=== PATIENT | female | born 1990 | race Caucasian/White ===

== ENCOUNTER → 2016-07-02 | Outpatient (CLI) | payer MEDICAID, OTHER ==
[2016-07-02 17:53] LABS: ABSOLUTE EOSINOPHILS # (AUTO) 0.1 10^3/uL (0.0-0.6); ABSOLUTE LYMPHOCYTES (AUTO) 1.6 10^3/uL (0.5-4.7); ABSOLUTE MONOCYTES (AUTO) 0.5 10^3/uL (0.1-1.4); ABSOLUTE NEUT (AUTO) 6.1 10^3/uL (1.7-8.2); BASOPHILS % (AUTO) 0.2 % (0-2); EOSINOPHILS % (AUTO) 0.9 % (0-6); HEMATOCRIT 33.9 % (36.0-47.0); HEMOGLOBIN 11.8 g/dL (12.0-15.5); HGB HCT DIFFERENCE 1.5; LYMPHOCYTES % (AUTO) 19.1 % (13-45); MEAN CORPUSCULAR HEMOGLOBIN 31.1 pg (27.0-33.4); MEAN CORPUSCULAR HGB CONC 34.8 g/dL (32.0-36.0); MEAN CORPUSCULAR VOLUME 89 fl (80-97); RED BLOOD COUNT 3.79 10^6/uL (3.72-5.28); RED CELL DISTRIBUTION WIDTH 12.5 % (11.5-14.0); SEGMENTED NEUTROPHILS % (AUTO) 73.8 % (42-78); WHITE BLOOD COUNT 8.3 10^3/uL (4.0-10.5)
== END ==
LOC: OD 16:35
PROVIDERS: ATTEND Student in an Organized Health Care Education/Training Program
DX: O26.892 Other specified pregnancy related conditions, second trimester (principal); R00.2 Palpitations
CPT/HCPCS: 36415; 84439; 84443; 85025

== ENCOUNTER 2016-09-06 17:21 | Outpatient (CLI) | payer MEDICAID ==
[2016-09-06 18:12] LABS: APPEARANCE,URINE CLEAR; BILIRUBIN,URINE NEGATIVE (NEGATIVE); GLUCOSE, URINE NEGATIVE (NEGATIVE); KETONES,URINE NEGATIVE (NEGATIVE); LEUKOCYTE ESTERASE,URINE SMALL (NEGATIVE); NITRITE,URINE NEGATIVE (NEGATIVE); PROTEIN,URINE NEGATIVE (NEGATIVE); URINE SPECIFIC GRAVITY 1.002; UROBILINOGEN,URINE NEGATIVE mg/dL (<2.0)
[2016-09-06 18:28] LABS: URINE BARBITURATES SCREEN NEGATIVE; URINE METHADONE SCREEN NEGATIVE; URINE OPIATES LOW NEGATIVE; URINE PHENCYCLIDINE SCREEN NEGATIVE
== END 2016-09-06 19:21 | disposition home or self-care (01) ==
LOC: LC 17:21
PROVIDERS: ATTEND Obstetrics & Gynecology
PROC: 4A1HXCZ Monitoring of Products of Conception, Cardiac Rate, External Approach (ICD-10-PCS; principal; 2016-09-06)
DX: O36.8130 Decreased fetal movements, third trimester, not applicable or unspecified (principal); Z3A.31 31 weeks gestation of pregnancy
CPT/HCPCS: 80307; 81001

== ENCOUNTER 2016-10-16 08:25 | Outpatient (CLI) | payer MEDICAID ==
[2016-10-16 09:01] LABS: APPEARANCE,URINE CLOUDY; BILIRUBIN,URINE NEGATIVE (NEGATIVE); GLUCOSE, URINE NEGATIVE (NEGATIVE); KETONES,URINE NEGATIVE (NEGATIVE); LEUKOCYTE ESTERASE,URINE LARGE (NEGATIVE); NITRITE,URINE NEGATIVE (NEGATIVE); PROTEIN,URINE NEGATIVE (NEGATIVE); URINE SPECIFIC GRAVITY 1.004; UROBILINOGEN,URINE NEGATIVE mg/dL (<2.0)
[2016-10-16 09:24] LABS: URINE BARBITURATES SCREEN NEGATIVE; URINE METHADONE SCREEN NEGATIVE; URINE OPIATES LOW NEGATIVE; URINE PHENCYCLIDINE SCREEN NEGATIVE
[2016-10-16] MEDS ORDERED: HYDROXYZINE PAMOATE 50 MG CAPSULE ONE (10:17)
--- NOTE | 2016-10-16 10:39 | Non Stress Test Report ---
Non Stress Test Datetime Report Generated by CPN: 10/16/2016 10:39 DEMOGRAPHIC EGA NST: 37.2 INDICATION Indication for Study: Ordered by Provider MONITORING Monitor Explained: Monitor Explained; Test Explained; Patient Verbalized Understanding Time on Monitor: 10/16/2016 08:46 Time off Monitor: 10/16/2016 10:10 NST Duration: 84 NST INTERVENTIONS NST Interventions: None Physician Notified NST: H Garrison CNM BABY A: [id number] BABY A Movement : Present Contraction Frequency : irregular FHR Baseline : 135 Accelerations : 15X15 Decelerations : None Variability : Moderate 6-25bpm NST Review: Meets Criteria for Reactive NST NST Review and Verified By : Disha Jones RN NST Results: Reactive NST REPORT Report Trigger: Send Report
== END 2016-10-16 10:25 | disposition home or self-care (01) ==
LOC: LC 08:25
PROVIDERS: ATTEND Obstetrics & Gynecology
PROC: 4A1HXCZ Monitoring of Products of Conception, Cardiac Rate, External Approach (ICD-10-PCS; principal; 2016-10-16)
DX: O47.1 False labor at or after 37 completed weeks of gestation (principal); Z3A.37 37 weeks gestation of pregnancy
CPT/HCPCS: 59025; 81005; 80307; J3490

== ENCOUNTER 2016-10-19 01:09 | Outpatient (CLI) | payer MEDICAID ==
[2016-10-19 01:59] LABS: APPEARANCE,URINE CLEAR; BILIRUBIN,URINE NEGATIVE (NEGATIVE); GLUCOSE, URINE NEGATIVE (NEGATIVE); KETONES,URINE NEGATIVE (NEGATIVE); LEUKOCYTE ESTERASE,URINE NEGATIVE (NEGATIVE); NITRITE,URINE NEGATIVE (NEGATIVE); PROTEIN,URINE NEGATIVE (NEGATIVE); URINE SPECIFIC GRAVITY 1.002; UROBILINOGEN,URINE NEGATIVE mg/dL (<2.0)
[2016-10-19 02:13] LABS: AMNISURE (ROM) NEGATIVE (NEGATIVE)
[2016-10-19 03:02] LABS: URINE BARBITURATES SCREEN NEGATIVE; URINE METHADONE SCREEN NEGATIVE; URINE OPIATES LOW NEGATIVE; URINE PHENCYCLIDINE SCREEN NEGATIVE
--- NOTE | 2016-10-19 03:24 | Non Stress Test Report ---
Non Stress Test Datetime Report Generated by CPN: 10/19/2016 03:24 DEMOGRAPHIC EGA NST: 37.5 INDICATION Indication for Study: Ordered by Provider Indication for Study (NST) Other: Suspected ROM VITAL SIGNS Temperature - NST: 98.6 Pulse - NST: 96 RESP - NST: 16 NBPSYS NST: 105 NBPDIA NST: 56 URINE RESULTS Urine Protein, NST: Negative Urine Ketones - NST: Negative Urine Glucose - NST: Negative Urine Blood - NST: Negative MONITORING Monitor Explained: Monitor Explained; Test Explained; Patient Verbalized Understanding Time on Monitor: 10/19/2016 02:10 Time off Monitor: 10/19/2016 02:30 NST Duration: 20 NST INTERVENTIONS NST Interventions: PO Hydration; Reposition Patient Physician Notified NST: Olivier, MD BABY A: [id number] BABY A Movement : Present Contraction Frequency : 0 FHR Baseline : 135 Accelerations : 15X15 Decelerations : None Variability : Moderate 6-25bpm NST Review: Meets Criteria for Reactive NST NST Review and Verified By : Virgilio Mo RN NST Results: Reactive NST REPORT Report Trigger: Send Report
== END 2016-10-19 03:05 | disposition home or self-care (01) ==
LOC: LC 01:09
PROVIDERS: ATTEND Obstetrics & Gynecology
PROC: 4A1HXCZ Monitoring of Products of Conception, Cardiac Rate, External Approach (ICD-10-PCS; principal; 2016-10-19)
DX: Z36 Encounter for antenatal screening of mother (principal); Z3A.37 37 weeks gestation of pregnancy
CPT/HCPCS: 59025; 84112; 81005; 80307; Q0114

== ENCOUNTER 2016-10-29 06:34 | Inpatient (IN) | payer MEDICAID ==
[2016-10-29] MEDS ORDERED: RINGERS SOLUTION,LACTATED 1,000 ML IV PRN (07:08)
[2016-10-29 07:58] LABS: ABSOLUTE EOSINOPHILS # (AUTO) 0.1 10^3/uL (0.0-0.6); ABSOLUTE LYMPHOCYTES (AUTO) 1.5 10^3/uL (0.5-4.7); ABSOLUTE MONOCYTES (AUTO) 0.7 10^3/uL (0.1-1.4); BASOPHILS % (AUTO) 0.1 % (0-2); EOSINOPHILS % (AUTO) 0.7 % (0-6); HEMATOCRIT 34.6 % (36.0-47.0); HEMOGLOBIN 11.9 g/dL (12.0-15.5); HGB HCT DIFFERENCE 1.1; LYMPHOCYTES % (AUTO) 17.9 % (13-45); MEAN CORPUSCULAR HEMOGLOBIN 29.8 pg (27.0-33.4); MEAN CORPUSCULAR HGB CONC 34.4 g/dL (32.0-36.0); MEAN CORPUSCULAR VOLUME 87 fl (80-97); RED BLOOD COUNT 3.98 10^6/uL (3.72-5.28); RED CELL DISTRIBUTION WIDTH 13.7 % (11.5-14.0); SEGMENTED NEUTROPHILS % (AUTO) 72.3 % (42-78); WHITE BLOOD COUNT 8.3 10^3/uL (4.0-10.5)
[2016-10-29 08:48] LABS: APPEARANCE,URINE CLEAR; BILIRUBIN,URINE NEGATIVE (NEGATIVE); GLUCOSE, URINE NEGATIVE (NEGATIVE); KETONES,URINE NEGATIVE (NEGATIVE); LEUKOCYTE ESTERASE,URINE NEGATIVE (NEGATIVE); NITRITE,URINE NEGATIVE (NEGATIVE); PROTEIN,URINE NEGATIVE (NEGATIVE); URINE SPECIFIC GRAVITY 1.006; UROBILINOGEN,URINE NEGATIVE mg/dL (<2.0)
[2016-10-29] MEDS ORDERED: ONDANSETRON HCL INJ/PF 4 MG/2 ML SDV IV ONE (08:58)
[2016-10-29 08:59] LABS: URINE BARBITURATES SCREEN NEGATIVE; URINE METHADONE SCREEN NEGATIVE; URINE OPIATES LOW NEGATIVE; URINE PHENCYCLIDINE SCREEN NEGATIVE
[2016-10-29] MEDS ORDERED: ONDANSETRON HCL INJ/PF 4 MG/2 ML SDV ONE (09:03)
[2016-10-29] MEDS ORDERED: MISOPROSTOL 0.2 MG TABLET ONE (09:59)
[2016-10-29] MEDS ORDERED: OXYTOCIN/NORMAL SALINE 20 UNIT/1,000 ML RTUINJ ONE (10:00)
[2016-10-29] MEDS ORDERED: FENTANYL CITRATE INJ/PF 100 MCG/2 ML AMPUL IV ONE (10:47)
[2016-10-29] MEDS ORDERED: FENTANYL CITRATE INJ/PF 100 MCG/2 ML AMPUL ONE (10:52)
[2016-10-29] MEDS ORDERED: DIBUCAINE 1% OINTMENT 28 GM TP PRN (11:55)
[2016-10-29] MEDS ORDERED: OXYTOCIN/NORMAL SALINE 20 UNIT/1,000 ML RTUINJ IV PRN (11:55)
[2016-10-29] MEDS ORDERED: MEASLES,MUMPS&RUBELLA VACC/PF 0.5 ML VIAL SUBCUT PRN (11:55)
[2016-10-29] MEDS ORDERED: DIPH/PERTUSS(ACELL)/TETANUS VAC/PF 0.5 ML SYR (>=10YO) IM PRN (11:55)
[2016-10-29] MEDS ORDERED: BENZOCAINE/MENTHOL AEROSOL SPRAY 56 ML TOP PRN (11:55)
[2016-10-29] MEDS ORDERED: ACETAMINOPHEN WITH CODEINE #3 TABLET PO PRN ×2 (11:55)
[2016-10-29] MEDS ORDERED: ZOLPIDEM TARTRATE 5 MG TABLET PO PRN (11:55)
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
[2016-10-29] MEDS: IBUPROFEN 800 MG TABLET PO SCH (14:00)
--- NOTE | 2016-10-29 14:44 | Delivery Summary ---
Del Sum A-C Datetime Report Generated by CPN: 10/29/2016 14:43 DELIVERY PERSONNEL DELIVERY PERSONNEL: [id number] Delivery Doctor:: Mary Alice Ji CNM Nurse Financial Compliance Examiner Certified:: Mary Alice Ji CNM Labor and Delivery Nurse:: Margaret Rollins RNcigar patcher Nurse:: Elena Jarvis RN Nursery Nurse:: Jane Guerra RN Nursery Nurse:: Erica Anthony RN Student Observers:: Shaila Sykes RN Tub Mender/HISTOPATHOLOGIST: Gardenia Downing CST Tub Mender/HISTOPATHOLOGIST: [facility] Additional Personnel: : Stacy Ghosh RNC MATERNAL INFORMATION Delivery Anesthesia: None Medications After Delivery: Pitocin Bolus-Please Comment Meds After Delivery Comment: Pitocin 20 units in 1000 ml nss open for bolus Estimated Blood Loss (ml): 200 Maternal Complications: None Provider Comments: of viable female over intact perienum, head, shoulders and body delivered without difficulty. with spontaneous cry and respirations to maternal abdomen, skin to skin. Cord clamped X2, cut free after 2 min delay, by pts , spontaneous delivery of placenta via bush mechanis, appears intact, 3 VC. Vagina and perineum inspected, no lacerations noted, hemostasis acheived with external fundal massage and IV pitocin. Routine pp care, mother and infant in stable condition. LABOR SUMMARY EDC: 11/04/2016 00:00 No. Babies in Womb: 1 Attempted: No Labor Anesthesia: IV Sedation LABOR INFORMATION Reason for Induction: Not Applicable Onset of Labor: 10/29/2016 06:55 Complete Dilatation: 10/29/2016 11:26 Oxytocin: Augmentation Group B Beta Strep: negative Antibiotics # of Doses: 0 Steroids Given: None Reason Steroids Not Administered: Not Applicable MEMBRANES Membranes Rupture Method: Artificial Rupture of Membranes: 10/29/2016 09:46 Length of Rupture (hr): 1.82 Amniotic Fluid Color: Clear Amniotic Fluid Amount: Small Amniotic Fluid Odor: Normal STAGES OF LABOR Stage 1 hr: 4 Stage 1 min: 31 Stage 2 hr: 0 Stage 2 min: 9 Stage 3 hr: 0 Stage 3 min: 4 Total Time in Labor hr: 4 Total Time in Labor min: 44 VAGINAL DELIVERY Episiotomy: None Laceration Extension: N/A Laceration Type: None Laceration Repair: Not Applicable Laceration Repair Note: n/s Sponge Count Correct: N/A Sharps Count Correct: N/A CSECTION DELIVERY Primary Indication: N/A Secondary Indication: N/A CSection Incidence: N/A Labor: N/A Elective: N/A CSection Incision: N/A BABY A INFORMATION Delivery Date/Time: 10/29/2016 11:35 Method of Delivery: Vaginal Born in Route : No : N/A Forceps: N/A Vacuum Extraction: N/A Shoulder Dystocia : No PRESENTATION/POSITION BABY A Presentation: Cephalic Cephalic Presentation: Vertex Vertex Position: Right Occipital Anterior Breech Presentation: N/A PLACENTA INFORMATION BABY A Placenta Delivery Time : 10/29/2016 11:39 Placenta Method of Delivery: Spontaneous Placenta Status: Delivered SCORES BABY A Heart Rate 1 min: >100 bpm Resp Effort 1 min: Good Cry Reflex Irritability 1 min: Cough or Sneeze or Pulls Away Muscle Tone 1 min: Active Motion Color 1 min: Body Louann, Extremities Blue Resuscitation Effort 1 min: Tactile Stimulation SCORE 1 MIN: 9 Heart Rate 5 min: >100 bpm Resp Effort 5 min: Good Cry Reflex Irritability 5 min: Cough or Sneeze or Pulls Away Muscle Tone 5 min: Active Motion Color 5 min: Body Louann, Extremities Blue Resuscitation Effort 5 min: N/A SCORE 5 MIN: 9 INFORMATION BABY A Gestational Age at Delivery: 39.1 Gestational Status: Full Term- 39- 40.6 Weeks Outcome : Liveborn Condition : Stable Infant Sex: Female IDENTIFICATION BABY A Infant Verification Date/Time: 10/29/2016 12:22 ID Band Number: [id number] Mother's Name Verified: Yes RN Verifying Infant: stacy camp RNC Additional Verifying Personnel: R Onel RN WEIGHT/LENGTH BABY A Birthweight (gm): 3480 Infant Weight (lb): 7 Weight (oz): 11 Infant Length (in): 19.75 Infant Length (cm): 50.17 CORD INFORMATION BABY A No. Cord Vessels: 3 Nuchal Cord : N/A Cord Blood Taken: Yes-For Storage (Mom's Blood type +) Infant Suction: None ASSESSMENT BABY A Infant Complications: None Physical Findings at Delivery: Within Normal Limits Infant Respirations: Appears Normal Skin to Skin: Yes Skin to Skin Time (min): 45 Assembler Camper/ALS Called : No Care By: Jane Guerra RN Transferred To: Remains with Mother BABY B INFORMATION : N/A SIGNATURES Assignment: Saad Esparza DO Signature: with User ID: Nora : with User ID: Nora
[2016-10-29] MEDS: FERROUS SULFATE 325 MG TABLET PO SCH (17:31)
[2016-10-29] MEDS: DOCUSATE SODIUM 100 MG CAPSULE PO SCH (17:31)
[2016-10-29] MEDS ORDERED: KETOROLAC TROMETHAMINE INJ/PF 30 MG/1 ML SDV IV ONE (21:00)
[2016-10-30] MEDS: IBUPROFEN 800 MG TABLET PO SCH ×3 (05:12→21:06)
[2016-10-30 07:49] LABS: HEMATOCRIT 32.3 % (36.0-47.0); HGB HCT DIFFERENCE 0.7; MEAN CORPUSCULAR HGB CONC 34.1 g/dL (32.0-36.0); MEAN CORPUSCULAR VOLUME 88 fl (80-97); RED BLOOD COUNT 3.67 10^6/uL (3.72-5.28); RED CELL DISTRIBUTION WIDTH 13.7 % (11.5-14.0); WHITE BLOOD COUNT 9.2 10^3/uL (4.0-10.5)
[2016-10-30] MEDS: DOCUSATE SODIUM 100 MG CAPSULE PO SCH ×2 (09:24→17:04)
[2016-10-30] MEDS: SENNOSIDES/DOCUSATE 8.6-50 MG 1 EACH TABLET PO SCH (09:25)
[2016-10-30] MEDS: PRENATAL VITAMIN W-O CA NO5/FE FUMARATE/FA CAPSULE PO SCH (09:25)
[2016-10-30] MEDS: FERROUS SULFATE 325 MG TABLET PO SCH ×2 (09:25→17:04)
--- NOTE | 2016-10-30 10:07 | PDOC PROGRESS REPORT ---
Subjective-OB Subjective: Post Delivery Day: 1 26 year old. Denies any needs at this time, lochia is stable, pain well controlled, voiding without difficulty. Physical Exam (OB) Vital Signs: Temp Pulse Resp BP Pulse Ox 98.4 F 66 16 131/82 H 97 10/30/16 07:47 10/30/16 07:47 10/30/16 07:47 10/30/16 07:47 10/30/16 07:47 Intake & Output 10/29/16 10/30/16 10/31/16 06:59 06:59 06:59 Weight 90 kg - PIH/Pre-Eclampsia Clonus: Negative Headache: Absent Epigastric Pain: No Visual Changes: No - Lochia Lochia Amount: Scant < 10 ml Lochia Color: Rubra/Red - Abdomen Description: Tender, Soft, Round Hernia Present: No Fundal Description: Firm, Midline Fundal Height: u/u - u/2 Objective-Diagnostic Laboratory: 10/30/16 07:13 10/30/16 07:13 WBC 9.2 RBC 3.67 L Hgb 11.0 L Hct 32.3 L MCV 88 MCH 30.0 MCHC 34.1 RDW 13.7 Plt Count 128 L Assessment and Plan(PN) - Assessment and Plan (1) Vaginal delivery Is this a current diagnosis for this admission?: Yes Plan: routine pp caer (2) Acute blood loss anemia Is this a current diagnosis for this admission?: Yes Plan: ferrous sulfate increase dietary iron - Time Spent with Patient Time with patient: Less than 15 minutes Critical Time spent with patient: Less than 15 minutes Medications reviewed and adjusted accordingly: Yes - Disposition Anticipated Discharge: Home Within: within 24 hours
[2016-10-30] MEDS: LEVOTHYROXINE SODIUM 0.05 MG TABLET PO SCH (10:32)
[2016-10-31] MEDS: IBUPROFEN 800 MG TABLET PO SCH (07:38)
[2016-10-31 08:01] VITALS: BP 139/69
--- NOTE | 2016-10-31 09:01 | PDOC DISCHARGE SUMMARY ---
Final Diagnosis Discharge Date: 10/31/16 - Final Diagnosis (1) Vaginal delivery Is this a current diagnosis for this admission?: Yes (2) Acute blood loss anemia Is this a current diagnosis for this admission?: Yes Discharge Data - Discharge Medication Home Medications: Pnv W-O Ca No5/Fe Fumarate/FA [-U Multiple Vitamin Capsule] 1 cap PO DAILY MDD 1 tab 05/25/12 Levothyroxine Sodium [Synthroid 0.025 mg Tablet] 25 mcg PO DAILY MDD 2 tabs Docusate Sodium [Colace 100 mg Capsule] 100 mg PO BID #60 capsule 10/31/16 Ferrous Sulfate [Feosol 325 mg Tablet] 325 mg PO BID #60 tablet 10/31/16 Ibuprofen [Motrin 800 mg Tablet] 800 mg PO Q8 #60 tablet 10/31/16 Gestational Age: 39.1 Reason(s) for Admission: Onset of Labor Procedures: NST Intrapartum Procedure(s): Spontaneous Vaginal Delivery - Data Baby 1 Female at 1 minute: 9 at 5 minutes: 9 Weight: 3480 kg Home with Mother: Yes Complications: No - Diagnosis Test Laboratory: Temp Pulse Resp BP Pulse Ox 98.3 F 110 H 16 139/69 H 97 10/31/16 07:32 10/31/16 07:32 10/31/16 07:32 10/31/16 07:32 10/31/16 07:32 10/29/16 10/29/16 10/30/16 07:00 07:45 07:13 RBC 3.98 3.67 L Hgb 11.9 L 11.0 L Hct 34.6 L 32.3 L Urine Opiates Screen NEGATIVE - Discharge information/Instructions Discharge Activity: Activity As Tolerated, No Lifting Over 10 Pounds, Pelvic Rest, No tub bath Discharge Diet: Regular Disposition: HOME, SELF-CARE Follow up with: [facility] in: 1, Weeks - to make sure pt got in to neurology
[2016-10-31] MEDS: FERROUS SULFATE 325 MG TABLET PO SCH (09:23)
[2016-10-31] MEDS: LEVOTHYROXINE SODIUM 0.05 MG TABLET PO SCH (09:23)
[2016-10-31] MEDS: SENNOSIDES/DOCUSATE 8.6-50 MG 1 EACH TABLET PO SCH (09:23)
[2016-10-31] MEDS: PRENATAL VITAMIN W-O CA NO5/FE FUMARATE/FA CAPSULE PO SCH (09:24)
[2016-10-31] MEDS: DOCUSATE SODIUM 100 MG CAPSULE PO SCH (09:24)
== END 2016-10-31 12:10 | disposition home or self-care (01) | DRG 775 ==
LOC: LC 06:34 → LR 07:02 → 2N 13:53
PROVIDERS: ADMIT Obstetrics & Gynecology; ATTEND Obstetrics & Gynecology
PROC: 10E0XZZ Delivery of Products of Conception, External Approach (ICD-10-PCS; principal; 2016-10-29)
DX: O75.89 Other specified complications of labor and delivery (principal); D62 Acute posthemorrhagic anemia; O99.284 Endocrine, nutritional and metabolic diseases complicating childbirth; E03.9 Hypothyroidism, unspecified; G40.909 Epilepsy, unspecified, not intractable, without status epilepticus; L40.50 Arthropathic psoriasis, unspecified; O90.81 Anemia of the puerperium; Z3A.39 39 weeks gestation of pregnancy; Z37.0 Single live birth
CPT/HCPCS: 36415; 80307; 81005; 85025; 85027; 86592; 86850; 86900; 86901; 90715; J1885; J2405; J2590; J3010; J3490

== ENCOUNTER 2016-11-02 13:42 | Observation (INO) | payer MEDICAID ==
[2016-11-02] MEDS ORDERED: ONDANSETRON 4 MG TAB.RAPDIS PO ONE (14:05)
--- NOTE | 2016-11-02 14:05 | ER Document Report ---
ED Medical Screen (RME) - General Chief Complaint: Abdominal Pain Stated Complaint: FEVER ABDOMINAL PAIN Time Seen by Provider: 11/02/16 14:02 Mode of Arrival: Ambulatory Information source: Patient Notes: 26-year-old female presents to ED for bilateral flank pain with nausea no vomiting and elevated temperature of 101 at home. She is afebrile in the emergency room. She gave to a 7 lbs. 11 oz. baby on October 29 was having no problems at home she was doing her normal vaginal bleeding which is not changed and this morning she woke up with severe flank pain bilaterally. She states she is having nausea but no vomiting or diarrhea. She has a history of PTSD psoriatic arthritis and seizures. She states she is not on any medications except the occasional Tylenol or Motrin. I have greeted and performed a rapid initial assessment of this patient. A comprehensive ED assessment and evaluation of the patient, analysis of test results and completion of medical decision making process will be conducted by an additional ED providers. TRAVEL OUTSIDE OF THE [place] IN LAST 30 DAYS: No - HPI Onset: This morning Onset/Duration: Sudden Quality of pain: Sharp Severity: Moderate Pain Level: 4 Associated Symptoms: Abdominal pain - Bilateral flank and abdomen pain going down to her pelvic area. - Related Data Allergies/Adverse Reactions: codeine [Codeine] Allergy (Intermediate, Verified 11/02/16 13:58) Hives latex [Latex] Allergy (Intermediate, Verified 11/02/16 13:58) rash Past Medical History Neurological Medical History: Reports: Hx Seizures. Denies: Hx Migraine Renal/ Medical History: Denies: Hx Peritoneal Dialysis Psychiatric Medical History: Reports: Hx Bipolar Disorder - Immunizations Hx Diphtheria, Pertussis, Tetanus Vaccination: Yes Physical Exam - Vital signs Vitals: Temp Pulse Resp BP Pulse Ox 97.9 F 107 H 16 132/60 H 99 11/02/16 13:48 11/02/16 13:48 11/02/16 13:48 11/02/16 13:48 11/02/16 13:48 Course - Vital Signs Vital signs: Temp Pulse Resp BP Pulse Ox 97.9 F 107 H 16 132/60 H 99 11/02/16 13:48 11/02/16 13:48 11/02/16 13:48 11/02/16 13:48 11/02/16 13:48
[2016-11-02] MEDS ORDERED: ONDANSETRON 4 MG TAB.RAPDIS ONE (14:10)
[2016-11-02 14:29] LABS: ABSOLUTE EOSINOPHILS # (AUTO) 0.1 10^3/uL (0.0-0.6); ABSOLUTE LYMPHOCYTES (AUTO) 1.1 10^3/uL (0.5-4.7); ABSOLUTE NEUT (AUTO) 11.9 10^3/uL (1.7-8.2); BASOPHILS % (AUTO) 0.1 % (0-2); EOSINOPHILS % (AUTO) 0.5 % (0-6); HEMATOCRIT 35.8 % (36.0-47.0); HGB HCT DIFFERENCE 0.2; LYMPHOCYTES % (AUTO) 7.8 % (13-45); MEAN CORPUSCULAR HEMOGLOBIN 29.5 pg (27.0-33.4); MEAN CORPUSCULAR HGB CONC 33.4 g/dL (32.0-36.0); MEAN CORPUSCULAR VOLUME 88 fl (80-97); MONOCYTES % (AUTO) 7.2 % (3-13); RED BLOOD COUNT 4.06 10^6/uL (3.72-5.28); RED CELL DISTRIBUTION WIDTH 13.6 % (11.5-14.0); SEGMENTED NEUTROPHILS % (AUTO) 84.4 % (42-78); WHITE BLOOD COUNT 14.1 10^3/uL (4.0-10.5)
[2016-11-02 14:34] LABS: APPEARANCE,URINE SLIGHTLY-CLOUDY; BILIRUBIN,URINE NEGATIVE (NEGATIVE); GLUCOSE, URINE NEGATIVE (NEGATIVE); KETONES,URINE NEGATIVE (NEGATIVE); LEUKOCYTE ESTERASE,URINE LARGE (NEGATIVE); NITRITE,URINE NEGATIVE (NEGATIVE); PROTEIN,URINE 100 mg/dL (NEGATIVE); URINE SPECIFIC GRAVITY 1.009; UROBILINOGEN,URINE NEGATIVE mg/dL (<2.0)
[2016-11-02 14:45] LABS: ALANINE AMINOTRANSFERASE 33 U/L (9-52); ALBUMIN 3.6 g/dL (3.5-5.0); ALKALINE PHOSPHATASE 136 U/L (38-126); ANION GAP 12 (5-19); ASPARTATE AMINO TRANSFERASE 24 U/L (14-36); BILIRUBIN,DIRECT 0.3 mg/dL (0.0-0.4); BILIRUBIN,TOTAL 0.7 mg/dL (0.2-1.3); BLOOD UREA NITROGEN 8 mg/dL (7-20); CALCIUM 9.4 mg/dL (8.4-10.2); CARBON DIOXIDE 24 mmol/L (22-30); CHLORIDE 103 mmol/L (98-107); GLUCOSE 86 mg/dL (75-110); POTASSIUM 3.8 mmol/L (3.6-5.0); SODIUM 138.5 mmol/L (137-145); TOTAL PROTEIN 6.4 g/dL (6.3-8.2)
[2016-11-02] MEDS: NORMAL SALINE 1000 ML 1,000 ML IV PRN ×2 (14:56→16:00)
[2016-11-02 15:11] LABS: VENOUS BLOOD BASE EXCESS -0.2 mmol/L; VENOUS BLOOD HCO3 23.4 mmol/L (20-32); VENOUS BLOOD PCO2 34.8 mmHg (35-63); VENOUS BLOOD PH 7.45 (7.30-7.42)
--- NOTE | 2016-11-02 15:19 | ER Document Report ---
ED General - General Chief Complaint: Abdominal Pain Stated Complaint: FEVER ABDOMINAL PAIN Time Seen by Provider: 11/02/16 14:02 Mode of Arrival: Ambulatory Information source: Patient Notes: 26-year-old female who delivered 4 days ago vaginally presents with complaints of fever abdominal pain. Patient has fever started last night has been taking Tylenol Motrin TRAVEL OUTSIDE OF THE [place] IN LAST 30 DAYS: No - HPI Onset: Yesterday Onset/Duration: Sudden Quality of pain: Cramping Severity: Mild Pain Level: 1 Associated symptoms: Fever Exacerbated by: Denies Relieved by: Denies Similar symptoms previously: Yes Recently seen / treated by doctor: No - Related Data Allergies/Adverse Reactions: codeine [Codeine] Allergy (Intermediate, Verified 11/02/16 13:58) Hives latex [Latex] Allergy (Intermediate, Verified 11/02/16 13:58) rash Past Medical History - General Information source: Patient - Social History Smoking Status: Never Smoker Cigarette use (# per day): No Chew tobacco use (# tins/day): No Smoking Education Provided: No Frequency of alcohol use: None Drug Abuse: None Family History: Reviewed & Not Pertinent Patient has suicidal ideation: No Patient has homicidal ideation: No Neurological Medical History: Reports: Hx Seizures. Denies: Hx Migraine Renal/ Medical History: Denies: Hx Peritoneal Dialysis Psychiatric Medical History: Reports: Hx Bipolar Disorder Surgical Hx: Negative - Immunizations Hx Diphtheria, Pertussis, Tetanus Vaccination: Yes Review of Systems - Review of Systems Notes: REVIEW OF SYSTEMS: CONSTITUTIONAL : Admits to fever EENT: Denies eye, ear, throat, or mouth pain or symptoms. Denies nasal or sinus congestion or discharge. Denies throat, tongue, or mouth swelling or difficulty swallowing. CARDIOVASCULAR: Denies chest pain. Denies palpitations or racing or irregular heart beat. Denies ankle edema. RESPIRATORY: Denies cough, cold, or chest congestion. Denies shortness of breath, difficulty breathing, or wheezing. GASTROINTESTINAL: Admits to abdominal pain GENITOURINARY: Denies difficulty urinating, painful urination, burning, frequency, blood in urine, or discharge. FEMALE GENITOURINARY: Denies vaginal bleeding, heavy or abnormal periods, irregular periods. Denies vaginal discharge or odor. MUSCULOSKELETAL: Denies back or neck pain or stiffness. Denies joint pain or swelling. SKIN: Denies rash, lesions or sores. HEMATOLOGIC : Denies easy bruising or bleeding. LYMPHATIC: Denies swollen, enlarged glands. NEUROLOGICAL: Denies confusion or altered mental status. Denies passing out or loss of consciousness. Denies dizziness or lightheadedness. Denies headache. Denies weakness or paralysis or loss of use of either side. Denies problems with gait or speech. Denies sensory loss, numbness, or tingling. Denies seizures. PSYCHIATRIC: Denies anxiety or stress. Denies depression, suicidal ideation, or homicidal ideation. ALL OTHER SYSTEMS REVIEWED AND NEGATIVE. PHYSICAL EXAMINATION: GENERAL: Well-appearing, well-nourished and in no acute distress. HEAD: Atraumatic, normocephalic. EYES: Pupils equal round and reactive to light, extraocular movements intact, conjunctiva are normal. ENT: Nares patent, oropharynx clear without exudates. Moist mucous membranes. NECK: Normal range of motion, supple without lymphadenopathy LUNGS: Breath sounds clear to auscultation bilaterally and equal. No wheezes rales or rhonchi. HEART: Regular rate and rhythm without murmurs ABDOMEN: Soft, tender in the right upper quadrant left upper quadrants no suprapubic tenderness Female : deferred Musculoskeletal: Normal range of motion, no pitting or edema. No cyanosis. NEUROLOGICAL: Cranial nerves grossly intact. Normal speech, normal gait. Normal sensory, motor exams PSYCH: Normal mood, normal affect. SKIN: Warm, Dry, normal turgor, no rashes or lesions noted. Dictation was performed using [employer] voice recognition software Physical Exam - Vital signs Vitals: Temp Pulse Resp BP Pulse Ox 97.9 F 107 H 16 132/60 H 99 11/02/16 13:48 11/02/16 13:48 11/02/16 13:48 11/02/16 13:48 11/02/16 13:48 Course - Re-evaluation Re-evalutation: 11/02/16 15:19 Patient has mild white count elevation, urinalysis notes large leuk esterases, ultrasound is pending 11/02/16 17:17 Patient presentation is concerning for retained products that are infected, I spoke with Dr. Ash and will admit the patient, she requests 3 antibiotics be given orders have been placed 11/02/16 18:03 - Vital Signs Vital signs: Temp Pulse Resp BP Pulse Ox 97.9 F 107 H 16 132/60 H 99 11/02/16 13:48 11/02/16 13:48 11/02/16 13:48 11/02/16 13:48 11/02/16 13:48 - Laboratory Result Diagrams: 11/02/16 14:15 11/02/16 14:15 Laboratory results interpreted by me: 11/02/16 11/02/16 11/02/16 14:15 14:15 14:15 WBC 14.1 H Hct 35.8 L Seg Neutrophils % 84.4 H Lymphocytes % 7.8 L Absolute Neutrophils 11.9 H VBG pH VBG pCO2 Alkaline Phosphatase 136 H Urine Protein 100 H Urine Blood LARGE H Ur Leukocyte Esterase LARGE H 11/02/16 14:50 WBC Hct Seg Neutrophils % Lymphocytes % Absolute Neutrophils VBG pH 7.45 H VBG pCO2 34.8 L Alkaline Phosphatase Urine Protein Urine Blood Ur Leukocyte Esterase Discharge - Discharge Clinical Impression: Endometritis following delivery Abdominal pain Qualifiers: Abdominal location: upper abdomen, unspecified Qualified Code(s): R10.10 - Upper abdominal pain, unspecified Condition: Stable Disposition: ADMITTED OBSERVATION Admitting Provider: [facility] Admitted: Post
--- NOTE | 2016-11-02 17:09 | RADIOLOGY REPORT (SQ) ---
EXAM DESCRIPTION: U/S NON-OB PELVIS W/O DOP COMPLETED DATE/TIME: 11/02/2016 4:51 pm REASON FOR STUDY: recent delivery, fever COMPARISON: None. TECHNIQUE: Dynamic and static grayscale images acquired of the pelvis via transabdominal approach an d recorded on PACS. Additional selected color Doppler and spectral images recorded. LIMITATIONS: None. FINDINGS: UTERUS: Enlarged uterus, 17.8 x 11.6 x 8.5 cm. ENDOMETRIAL STRIPE: There is a 2 cm somewhat complex area in the fundal region of the endometrial can al. CERVIX: No nabothian cysts. RIGHT OVARY: Not seen. RIGHT OVARY DOPPLER: Normal arterial vascular flow without evidence for torsion. LEFT OVARY: No abnormal masses. LEFT OVARY DOPPLER: Not seen. FREE FLUID: None noted. OTHER: No other significant finding. MEASUREMENTS: UTERUS: 17.8 x 11.6 x 8.5 cm. ENDOMETRIAL STRIPE: 20 mm. RIGHT OVARY: Not seen LEFT OVARY: Not seen IMPRESSION: There appear to be retained products of conception. TECHNICAL DOCUMENTATION: JOB ID: [id number] [employer]- All Rights Reserved
[2016-11-02] MEDS ORDERED: CLINDAMYCIN 300 MG/D5W RTU 300 MG/50 ML RTUPB IV ONE (17:15)
[2016-11-02] MEDS ORDERED: AMPICILLIN SOD/SULBACTAM 3 GM VIAL IV ONE (17:15)
[2016-11-02] MEDS ORDERED: GENTAMICIN SULFATE INJ 80 MG/2 ML VIAL IV ONE (17:16)
[2016-11-02] MEDS ORDERED: GENTAMICIN SULFATE INJ 80 MG/2 ML VIAL IV SCH (20:15)
[2016-11-02] MEDS: GENTAMICIN SULFATE 80 MG in DEXTROSE 5%-WATER 100 ML IV SCH (21:55)
[2016-11-02] MEDS ORDERED: IBUPROFEN 800 MG TABLET PO PRN (23:02)
[2016-11-02] MEDS: AMPICILLIN SODIUM 1 GM in NORMAL SALINE 50 ML IV SCH (23:26)
[2016-11-03] MEDS ORDERED: AMPICILLIN SOD INJ 1 GM VIAL IV SCH
[2016-11-03] MEDS: CLINDAMYCIN 900 MG/D5W RTU 50 ML IV SCH ×3 (01:52→18:38)
[2016-11-03] MEDS: GENTAMICIN SULFATE 80 MG in DEXTROSE 5%-WATER 100 ML IV SCH ×3 (05:20→23:28)
--- NOTE | 2016-11-03 05:56 | PDOC H&P ---
History of Present Illness Admission Date/PCP: 11/02/16 17:00 Patient complains of: fever at home of 101.9. delivered vaginally 4 days ago History of Present Illness: BETH WHYTE is a 26 year old female s/p a vaginal delivery 4 days ago who began experiencing abdominal pain and fever at home of 101.9. Sono in ER showed complex fluid collection in uterine fundus. Past Medical History LMP: present Cardiac Medical History: Denies: Congestive Heart Failure, Myocardial Infarction, Hypertension Pulmonary Medical History: Denies: Asthma, Bronchitis, Chronic Obstructive Pulmonary Disease (COPD), Pneumonia, Tuberculosis Neurological Medical History: Denies: Migraine, Seizures Renal/ Medical History: Denies: End Stage Renal Disease GI Medical History: Denies: Cirrhosis, Gastroesophageal Reflux Disease Musculoskeltal Medical History: Reports: Arthritis Psychiatric Medical History: Reports: Depression Denies: Bipolar Disorder Social History Smoking Status: Unknown if Ever Smoked - Advance Directive Resuscitation Status: Full Code Family History Family History: Reviewed & Not Pertinent Parental Family History Reviewed: No Children Family History Reviewed: No Sibling(s) Family History Reviewed.: No Medication/Allergy Home Medications: Docusate Sodium [Colace 100 mg Capsule] 100 mg PO Q12 11/02/16 Ferrous Sulfate [Iron] 325 mg PO Q12 11/02/16 Ibuprofen [Motrin 800 mg Tablet] 800 mg PO Q8 11/02/16 Allergies/Adverse Reactions: codeine [Codeine] Allergy (Intermediate, Verified 11/02/16 13:58) Hives latex [Latex] Allergy (Intermediate, Verified 11/02/16 13:58) rash Physical Exam - Physical Exam Vital Signs: Temp Pulse Resp BP Pulse Ox 97.8 F 72 18 120/59 L 97 11/03/16 04:00 11/03/16 04:00 11/03/16 04:00 11/03/16 04:00 11/03/16 04:00 General appearance: PRESENT: no acute distress, cooperative GI/Abdominal exam: PRESENT: soft, tenderness - uterine fundus Extremities exam: PRESENT: +1 edema Musculoskeletal exam: PRESENT: ambulatory, full ROM Result Impressions: Pelvis Ultrasound 11/02/16 14:26 IMPRESSION: There appear to be retained products of conception. Assessment & Plan - Diagnosis (1) Abdominal pain Qualifiers: Abdominal location: upper abdomen, unspecified Qualified Code(s): R10.10 - Upper abdominal pain, unspecified Is this a current diagnosis for this admission?: Yes (2) Endometritis following delivery Is this a current diagnosis for this admission?: Yes - Inpatient Certification Based on my medical assessment, after consideration of the patient's comorbidities, presenting symptoms, or acuity I expect that the services needed warrant INPATIENT care.: Yes I certify that my determination is in accordance with my understanding of Medicare's requirements for reasonable and necessary INPATIENT services [42 CFR 412.3e].: Yes Medical Necessity: Need Close Monitoring Due to Risk of Patient Decompensation, Need For IV Fluids, Need for IV Antibiotics - possilbe need for D&C - Plan Summary Plan Summary: 23 hour obs admission for IV antibiotics and monitoring. If becomes afebrile > 24 hours may d/c home. consider possible d&c although images I reviewed are not clear for retained POC.
[2016-11-03] MEDS: AMPICILLIN SODIUM 1 GM in NORMAL SALINE 50 ML IV SCH ×4 (06:35→23:31)
[2016-11-03 06:37] LABS: ABSOLUTE EOSINOPHILS # (AUTO) 0.1 10^3/uL (0.0-0.6); ABSOLUTE LYMPHOCYTES (AUTO) 1.2 10^3/uL (0.5-4.7); ABSOLUTE MONOCYTES (AUTO) 0.6 10^3/uL (0.1-1.4); BASOPHILS % (AUTO) 0.2 % (0-2); EOSINOPHILS % (AUTO) 1.4 % (0-6); HEMATOCRIT 32.9 % (36.0-47.0); HEMOGLOBIN 11.2 g/dL (12.0-15.5); HGB HCT DIFFERENCE 0.7; LYMPHOCYTES % (AUTO) 13.6 % (13-45); MEAN CORPUSCULAR HEMOGLOBIN 29.9 pg (27.0-33.4); MEAN CORPUSCULAR VOLUME 88 fl (80-97); MONOCYTES % (AUTO) 6.8 % (3-13); RED BLOOD COUNT 3.73 10^6/uL (3.72-5.28); RED CELL DISTRIBUTION WIDTH 13.9 % (11.5-14.0); WHITE BLOOD COUNT 8.9 10^3/uL (4.0-10.5)
--- NOTE | 2016-11-03 13:12 | PDOC PROGRESS REPORT ---
Subjective Progress Note for:: 11/03/16 Subjective:: Pt feeling much better today. Denies heavy vag bleeding, foul vag discharge. Notes some ruq pain after eating. States much of pain was ruq on arrival yesterday. Physical Exam - Physical Exam Vital Signs: Temp Pulse Resp BP Pulse Ox 98.0 F 67 16 115/69 99 11/03/16 11:14 11/03/16 11:14 11/03/16 11:14 11/03/16 11:14 11/03/16 11:14 Intake & Output 11/02/16 11/03/16 11/04/16 06:59 06:59 06:59 Intake Total 300 Balance 300 General appearance: PRESENT: no acute distress, well-developed, well-nourished GI/Abdominal exam: PRESENT: Kapoor's sign, soft - no fundal tenderness at this time Extremities exam: ABSENT: calf tenderness, clubbing, full ROM, joint swelling, pedal edema, tenderness, +1 edema, +2 edema, other Result Laboratory Results: 11/03/16 06:28 11/03/16 06:28 WBC 8.9 RBC 3.73 Hgb 11.2 L Hct 32.9 L MCV 88 MCH 29.9 MCHC 34.0 RDW 13.9 Plt Count 153 Seg Neutrophils % 78.0 Lymphocytes % 13.6 Monocytes % 6.8 Eosinophils % 1.4 Basophils % 0.2 Absolute Neutrophils 7.0 Absolute Lymphocytes 1.2 Absolute Monocytes 0.6 Absolute Eosinophils 0.1 Absolute Basophils 0.0 Impressions: Pelvis Ultrasound 11/02/16 14:26 IMPRESSION: There appear to be retained products of conception. Assessment & Plan - Diagnosis (1) Abdominal pain Qualifiers: Abdominal location: upper abdomen, unspecified Qualified Code(s): R10.10 - Upper abdominal pain, unspecified Is this a current diagnosis for this admission?: Yes - Plan Summary Plan Summary: cont triple abx given tmax of 100.5 last night check ruq US as may have had cholecystitis ...if gallstones present will consult gen surg
--- NOTE | 2016-11-04 | RADIOLOGY REPORT (SQ) ---
EXAM DESCRIPTION: U/S ABDOMEN LIMITED W/O DOP COMPLETED DATE/TIME: 11/03/2016 10:01 pm REASON FOR STUDY: R/O CHOLELITHASIS/ RUQ U/S COMPARISON: None. TECHNIQUE: Dynamic and static grayscale images acquired of the abdomen and recorded on PACS. Additio nal selected color Doppler and spectral images recorded. LIMITATIONS: None. FINDINGS: PANCREAS: No masses. Visualized pancreatic duct normal caliber. LIVER: No masses. Echotexture normal. LIVER VASCULATURE: Normal directional flow of the main portal vein and hepatic veins. GALLBLADDER: No stones. Normal wall thickness. No pericholecystic fluid. ULTRASOUND-DETECTED ALVAREZ'S SIGN: Negative. INTRAHEPATIC DUCTS AND COMMON DUCT: CBD and intrahepatic ducts normal caliber. No filling defects. INFERIOR VENA CAVA: Normal flow. AORTA: No aneurysm. RIGHT KIDNEY: Normal size. Normal echogenicity. No solid or suspicious masses. No hydronephrosis. No calcifications. PERITONEAL AND RIGHT PLEURAL SPACE: No ascites or effusions. OTHER: No other significant findings. IMPRESSION: No acute findings. TECHNICAL DOCUMENTATION: JOB ID: [id number] [employer]- All Rights Reserved
[2016-11-04] MEDS ORDERED: LANSOPRAZOLE 30 MG TAB.RAP.DR PO ONE (01:00)
[2016-11-04] MEDS: CLINDAMYCIN 900 MG/D5W RTU 50 ML IV SCH (01:18)
[2016-11-04] MEDS: AMPICILLIN SODIUM 1 GM in NORMAL SALINE 50 ML IV SCH (05:23)
[2016-11-04] MEDS: GENTAMICIN SULFATE 80 MG in DEXTROSE 5%-WATER 100 ML IV SCH (05:23)
[2016-11-04] MEDS ORDERED: FLUCONAZOLE 100 MG TABLET PO ONE (08:00)
[2016-11-04 09:58] VITALS: BP 120/59
--- NOTE | 2016-11-04 10:01 | PDOC DISCHARGE SUMMARY ---
Final Diagnosis Discharge Date: 11/04/16 Discharge Data - Discharge Medication Home Medications: Docusate Sodium [Colace 100 mg Capsule] 100 mg PO Q12 11/02/16 Ferrous Sulfate [Iron] 325 mg PO Q12 11/02/16 Ibuprofen [Motrin 800 mg Tablet] 800 mg PO Q8 11/02/16 Amox Tr/Potassium Clavulanate [Augmentin 875-125 mg Tablet] 1 tab PO BID #20 tablet 11/04/16 Gestational Age: 6 pp Reason(s) for Admission: Other - endometritis Admission Note: readmit for endometritis Procedures: NST - Diagnosis Test Laboratory: Temp Pulse Resp BP Pulse Ox 98.5 F 76 16 110/61 98 11/04/16 07:48 11/04/16 07:48 11/04/16 07:48 11/04/16 07:48 11/04/16 07:48 11/03/16 06:28 RBC 3.73 Hgb 11.2 L Hct 32.9 L - Discharge information/Instructions Discharge Activity: Activity As Tolerated Discharge Diet: Regular Disposition: HOME, SELF-CARE Follow up with: [facility] in: 1, Weeks
[2016-11-05] MEDS ORDERED: LANSOPRAZOLE 30 MG TAB.RAP.DR PO SCH (08:00)
== END 2016-11-04 10:50 | disposition home or self-care (01) ==
LOC: ER 13:42 → EH 17:00 → UNDOADMOB 17:30 → EH 17:30 → 2S 19:00
PROVIDERS: ADMIT Obstetrics & Gynecology; ATTEND Obstetrics & Gynecology
PROC: 4A0HXCZ Measurement of Products of Conception, Cardiac Rate, External Approach (ICD-10-PCS; principal; 2016-11-02)
DX: O86.12 Endometritis following delivery (principal); N71.9 Inflammatory disease of uterus, unspecified; O90.89 Other complications of the puerperium, not elsewhere classified; R10.11 Right upper quadrant pain
CPT/HCPCS: 99285; 96361; 96365; 96368; 36415 ×2; 87040; 85025 ×2; 80053; 81001; 82803; 83605; 76856; 76705; 59025; G0378 ×4; J0290 ×3; J3490 ×5; S0119; J0295; J1580 ×3; J7030

== ENCOUNTER 2017-02-11 08:28 | Day surgery (SDC) | payer MEDICAID ==
[2017-02-07 09:57] LABS: APPEARANCE,URINE SLIGHTLY-CLOUDY; BILIRUBIN,URINE NEGATIVE (NEGATIVE); GLUCOSE, URINE NEGATIVE (NEGATIVE); KETONES,URINE NEGATIVE (NEGATIVE); LEUKOCYTE ESTERASE,URINE NEGATIVE (NEGATIVE); NITRITE,URINE NEGATIVE (NEGATIVE); PROTEIN,URINE NEGATIVE (NEGATIVE); URINE SPECIFIC GRAVITY 1.023; UROBILINOGEN,URINE NEGATIVE mg/dL (<2.0)
[2017-02-07 10:02] LABS: HEMATOCRIT 40.4 % (36.0-47.0); HEMOGLOBIN 13.9 g/dL (12.0-15.5); HGB HCT DIFFERENCE 1.3; MEAN CORPUSCULAR HEMOGLOBIN 31.5 pg (27.0-33.4); MEAN CORPUSCULAR HGB CONC 34.5 g/dL (32.0-36.0); MEAN CORPUSCULAR VOLUME 91 fl (80-97); RED BLOOD COUNT 4.43 10^6/uL (3.72-5.28); RED CELL DISTRIBUTION WIDTH 13.5 % (11.5-14.0); WHITE BLOOD COUNT 6.7 10^3/uL (4.0-10.5)
[~2017-02-11 08:28] MED LIST: FENTANYL CITRATE INJ/PF 100 MCG/2 ML AMPUL ONE; LACTATED RINGERS 1000 ML IV PRN; LIDOCAINE 0.5% INJ-PF (5 MG/ML) 50 ML SDV SUBCUT PRN; MIDAZOLAM 2 MG/2 ML INJ ONE; PROPOFOL INJ 200 MG/20 ML VIAL IV ONE
[2017-02-11] MEDS ORDERED: LIDOCAINE 1%/EPINEPHRINE INJ 20 ML VIAL ONE (10:50)
[2017-02-11] MEDS ORDERED: DIPHENHYDRAMINE HCL 50 MG/ML VIAL IV PRN (11:43)
[2017-02-11] MEDS ORDERED: PROMETHAZINE HCL INJ 25 MG/1 ML VIAL IV PRN (11:43)
[2017-02-11] MEDS ORDERED: FENTANYL CITRATE INJ/PF 100 MCG/2 ML AMPUL IV PRN ×3 (11:43)
--- NOTE | 2017-02-11 11:59 | Operative Report ---
Operative Report DATE OF SURGERY: 02/11/17 PREOPERATIVE DIAGNOSIS: Patient desires tubal ligation and has high-grade dysplasia and desires a cold knife cone POSTOPERATIVE DIAGNOSIS: Same OPERATION: Procedures a laparoscopic tubal ligation with Filshie clips and cold knife conization endocervical curetting SURGEON: EARLINE URIBE ANESTHESIA: GA TISSUE REMOVED OR ALTERED: Cervical cone and endocervical curettage COMPLICATIONS: None ESTIMATED BLOOD LOSS: 50 cc INTRAOPERATIVE FINDINGS: Normal uterus tubes and ovaries PROCEDURE: Patient was taken to the OR and placed in supine position. General anesthesia was induced. She is placed in dorsolithotomy position using Dominic stirrups. Her abdomen perineum and vagina were prepared and draped in sterile fashion. She had voided prior to coming back to the OR and did not need cath. The sponge stick was placed in the vagina for manipulation of the uterus. Incision was made the umbilicus and natural umbilical defect identified and dilated Alaina clamp. This allowed a blunt port to be placed. Laparoscopy confirmed appropriate placement. The abdomen was insufflated with CO2 gas. A Filshie clip was placed across the mid isthmic portion of each fallopian tube. The tubes had been followed out to their fimbriated ends for proper identification. After the completion of the tubal the scope and port were removed the gas was allowed to escape from the abdomen. The fascia at the umbilicus was closed with a 2-0 Vicryl stitch and skin closed with 4-0 undyed Vicryl stitch. We then turned to the pelvic portion. A weighted speculum was placed in the cervix was grasped at 3 and 9:00 with single-tooth tenaculum. Cervical cone was completed. This was passed off the field. An endocervical curettage was obtained. Angle sutures were placed at 3 and 9:00 using chromic suture. A running baseball stitch was then placed around the circumference of the cone which dramatically helped with bleeding. The cone base was irrigated and suctioned free fluid it was hemostatic. All instruments were removed. She was brought out of anesthesia and taken to the recovery room in stable condition. End of dictation
[2017-02-11] MEDS: FENTANYL CITRATE INJ/PF 100 MCG/2 ML AMPUL ONE ×2 (12:11→12:20)
[2017-02-11] MEDS ORDERED: NALBUPHINE HCL INJ 10 MG/1 ML AMPULE IV PRN (12:25)
[2017-02-11] MEDS ORDERED: IBUPROFEN 800 MG TABLET PO PRN (12:26)
[2017-02-11] MEDS ORDERED: OXYCODONE-ACETAMINOPHEN 5-325 MG TABLET PO PRN ×2 (12:26)
[2017-02-11] MEDS ORDERED: GLYCOPYRROLATE INJ 0.4 MG/2 ML VIAL ONE (12:43)
[2017-02-11] MEDS ORDERED: LIDOCAINE 2% INJ-PF (20 MG/ML) 2 ML AMPUL ONE (12:43)
[2017-02-11] MEDS ORDERED: SUCCINYLCHOLINE CHLORIDE INJ 200 MG/10 ML VIAL ONE (12:43)
[2017-02-11] MEDS ORDERED: ONDANSETRON HCL INJ/PF 4 MG/2 ML SDV ONE (12:43)
[2017-02-11] MEDS ORDERED: DEXAMETHASONE SOD PHOSPHATE INJ 4 MG/1 ML VIAL ONE (12:43)
[2017-02-11 14:18] VITALS: BP 145/83
== END 2017-02-11 14:20 | disposition home or self-care (01) ==
LOC: OROUT 08:28
PROVIDERS: ATTEND Obstetrics & Gynecology
PROC: 0UBC7ZX Excision of Cervix, Via Natural or Artificial Opening, Diagnostic (ICD-10-PCS; principal; 2017-02-11 10:30)
PROC: 0UL74CZ Occlusion of Bilateral Fallopian Tubes with Extraluminal Device, Percutaneous Endoscopic Approach (ICD-10-PCS; 2017-02-11 10:30)
DX: Z30.2 Encounter for sterilization (principal); D06.0 Carcinoma in situ of endocervix; G40.909 Epilepsy, unspecified, not intractable, without status epilepticus; Z79.899 Other long term (current) drug therapy; Z88.5 Allergy status to narcotic agent; Z91.040 Latex allergy status
CPT/HCPCS: 36415; 85027; 81005; 81025; 88305 ×2; 88307 ×2; 57520; 58671; J2250; J1100; J3010; J3490 ×3; J2300; J0330; J2405; J2704; 851

== ENCOUNTER 2017-07-18 08:52 | Day surgery (SDC) | payer MEDICAID ==
[2017-07-13 11:02] LABS: APPEARANCE,URINE CLEAR; BILIRUBIN,URINE NEGATIVE (NEGATIVE); COLOR,URINE YELLOW; GLUCOSE, URINE NEGATIVE (NEGATIVE); KETONES,URINE NEGATIVE (NEGATIVE); LEUKOCYTE ESTERASE,URINE NEGATIVE (NEGATIVE); NITRITE,URINE NEGATIVE (NEGATIVE); PROTEIN,URINE NEGATIVE (NEGATIVE); URINE SPECIFIC GRAVITY 1.014; UROBILINOGEN,URINE NEGATIVE mg/dL (<2.0)
[2017-07-13 11:08] LABS: HEMATOCRIT 39.4 % (36.0-47.0); HEMOGLOBIN 13.6 g/dL (12.0-15.5); MEAN CORPUSCULAR HEMOGLOBIN 31.5 pg (27.0-33.4); MEAN CORPUSCULAR HGB CONC 34.6 g/dL (32.0-36.0); MEAN CORPUSCULAR VOLUME 91 fl (80-97); PLATELET COUNT 152 10^3/uL (150-450); RED BLOOD COUNT 4.33 10^6/uL (3.72-5.28); RED CELL DISTRIBUTION WIDTH 12.8 % (11.5-14.0); WHITE BLOOD COUNT 5.1 10^3/uL (4.0-10.5)
[2017-07-13 11:50] LABS: ALANINE AMINOTRANSFERASE 35 U/L (9-52); ALBUMIN 4.4 g/dL (3.5-5.0); ALKALINE PHOSPHATASE 54 U/L (38-126); ANION GAP 13 (5-19); ASPARTATE AMINO TRANSFERASE 24 U/L (14-36); BILIRUBIN,DIRECT 0.3 mg/dL (0.0-0.4); BILIRUBIN,TOTAL 0.4 mg/dL (0.2-1.3); BLOOD UREA NITROGEN 10 mg/dL (7-20); CALCIUM 9.6 mg/dL (8.4-10.2); CARBON DIOXIDE 24 mmol/L (22-30); CHLORIDE 105 mmol/L (98-107); GLUCOSE 73 mg/dL (75-110); POTASSIUM 4.1 mmol/L (3.6-5.0); SODIUM 141.6 mmol/L (137-145); TOTAL PROTEIN 7.1 g/dL (6.3-8.2)
[~2017-07-18 08:52] MED LIST changes: +CEFAZOLIN SODIUM 2 GM in DEXTROSE 5%-WATER 100 ML IV PRN; +DEXAMETHASONE SOD PHOSPHATE INJ 4 MG/1 ML VIAL ONE; -FENTANYL CITRATE INJ/PF 100 MCG/2 ML AMPUL ONE; +GLYCOPYRROLATE INJ 0.4 MG/2 ML VIAL ONE; +LIDOCAINE 2% INJ-PF (20 MG/ML) 2 ML AMPUL ONE; -MIDAZOLAM 2 MG/2 ML INJ ONE; +NEOSTIGMINE METHYLSULFATE 10 MG/10 ML VIAL ONE; +ONDANSETRON HCL INJ/PF 4 MG/2 ML SDV ONE; +PHENYLEPHRINE HCL INJ/PF 10 MG/1 ML SDV ONE; -PROPOFOL INJ 200 MG/20 ML VIAL IV ONE; +SUCCINYLCHOLINE CHLORIDE INJ 200 MG/10 ML VIAL ONE; +VECURONIUM BROMIDE INJ 10 MG VIAL IV ONE
[2017-07-18] MEDS ORDERED: FENTANYL CITRATE INJ/PF 250 MCG/5 ML AMPULE ONE (10:30)
[2017-07-18] MEDS ORDERED: ACETAMINOPHEN 100 ML IV ONE (10:31)
[2017-07-18] MEDS ORDERED: FENTANYL CITRATE INJ/PF 100 MCG/2 ML AMPUL ONE (10:31)
[2017-07-18] MEDS ORDERED: MORPHINE SULFATE 10 MG/ML INJ ONE (10:31)
[2017-07-18] MEDS ORDERED: MIDAZOLAM 2 MG/2 ML INJ ONE (10:31)
[2017-07-18] MEDS ORDERED: PROPOFOL INJ 200 MG/20 ML VIAL IV ONE (10:32)
[2017-07-18] MEDS ORDERED: FAMOTIDINE INJ/PF 20 MG/2 ML SDV IV ONE (10:39)
[2017-07-18] MEDS ORDERED: EPHEDRINE SULFATE INJ 50 MG/1 ML AMPULE ONE (11:11)
[2017-07-18] MEDS ORDERED: DIPHENHYDRAMINE HCL 50 MG/ML VIAL IV PRN (12:31)
[2017-07-18] MEDS ORDERED: FENTANYL CITRATE INJ/PF 100 MCG/2 ML AMPUL IV PRN ×3 (12:31)
[2017-07-18] MEDS ORDERED: MEPERIDINE HCL/PF INJ 25 MG/1 ML DISP.SYRIN IV PRN (12:31)
[2017-07-18] MEDS ORDERED: PROMETHAZINE HCL INJ 25 MG/1 ML VIAL IV PRN ×2 (12:31→13:19)
[2017-07-18] MEDS ORDERED: RINGERS SOLUTION,LACTATED 1,000 ML IV PRN (13:19)
[2017-07-18] MEDS ORDERED: OXYCODONE-ACETAMINOPHEN 5-325 MG TABLET PO PRN ×4 (13:19→14:16)
[2017-07-18] MEDS ORDERED: HYDROMORPHONE HCL INJ/PF 2 MG/ML AMPULE IV PRN (13:19)
[2017-07-18] MEDS ORDERED: ACETAMINOPHEN 100 ML IV PRN (13:19)
--- NOTE | 2017-07-18 13:32 | Operative Report ---
Operative Report DATE OF SURGERY: 07/18/17 PREOPERATIVE DIAGNOSIS: Recurrent severe dysplasia dysmenorrhea as well as she has completed childbearing POSTOPERATIVE DIAGNOSIS: Same OPERATION: Robotic hysterectomy and bilateral salpingectomy SURGEON: EARLINE URIBE ANESTHESIA: GA TISSUE REMOVED OR ALTERED: Uterus cervix fallopian tubes COMPLICATIONS: None ESTIMATED BLOOD LOSS: 125 cc INTRAOPERATIVE FINDINGS: Bulky appearing uterus normal-looking ovaries PROCEDURE: Patient was taken the OR and placed in supine position. General anesthesia was induced. She is placed in the dorsolithotomy position using Dominic stirrups. Her abdomen perineum and vagina were prepared and draped in sterile fashion. A Galloway was placed into the bladder for drainage during the case and the V care uterine manipulator was placed on the cervix. Next an incision was made approximately 5 cm above the umbilicus. The fascia was identified and elevated with [place] clamps allowing an incision to be made. The trocar was placed in a blunt fashion and balloon inflated. Laparoscopy confirmed appropriate placement. The lateral ports were placed under laparoscopic visualization for the robotic arms. And a right lower quadrant port was placed under laparoscopic visualization for the insufflator. I then went to the console. View of the pelvis was good. Each fallopian tube was removed using bipolar monopolar cautery and then passed off the field through the accessory port. Next the round ligaments were cauterized with bipolar and cut with monopolar liborio. The left uterine ovarian pedicle was cauterized with bipolar and cut with monopolar liborio. The anterior leaf of the broad ligament was incised creating the bladder flap on the left side. The probe posterior leaf the broad ligament was also incised. This allowed isolation of the uterine arteries which were cauterized with bipolar and cut with monopolar liborio. Next the right uterine ovarian pedicle was cauterized with bipolar and cut with monopolar liborio. The remainder of the bladder flap was developed by incising the anterior leaf of the broad ligament. The uterine arteries were then cauterized with bipolar and cut with monopolar liborio. On both sides of the uterine arteries were cauterized directly next to the uterus. The bladder flap had been completely developed at this point. The cardinal ligaments bilaterally were cauterized with bipolar cautery and cut with monopolar liborio. Upon reaching the vaginal cuff a circumferential incision was made on top of the V care ring. The uterus was removed through the vagina. The monopolar liborio were removed and the needle cross country truck driver replaced on it at this port. The V lock suture was then placed through the accessory port. The vaginal cuff was closed from right to left. The first suture incorporating anterior vaginal mucosa lateral vaginal sidewall and posterior vaginal mucosa. The cuff was then closed in running fashion closing anterior vaginal mucosa the posterior vaginal mucosa. Upon reaching the left side of the incision anterior vaginal mucosa lateral vaginal sidewall posterior vaginal mucosa were included in the suture. 3 running sutures were then placed medially in the V lock suture was cut. The pelvis was irrigated and suctioned free of fluid. The pedicles were inspected at all sites and found to be hemostatic. The robot was undocked from the patient. With the patient in less steep Trendelenburg pedicles were once again inspected laparoscopically for any bleeding and no bleeding was found and the ports were removed under laparoscopic visualization. The fascia at the umbilicus was closed with a 2-0 Vicryl suture and the skin at all 4 sites closed with a 4-0 undyed Vicryl suture. Patient was extubated in the OR and taken recovery room in stable condition.
[2017-07-18] MEDS: FENTANYL CITRATE INJ/PF 100 MCG/2 ML AMPUL ONE ×2 (13:33→13:39)
[2017-07-18] MEDS: MORPHINE SULFATE 10 MG/ML INJ ONE ×4 (13:58→14:12)
[2017-07-18] MEDS: KETOROLAC TROMETHAMINE INJ/PF 30 MG/1 ML SDV IV SCH ×2 (15:50→22:53)
[2017-07-18] MEDS ORDERED: IBUPROFEN 800 MG TABLET PO SCH (18:00)
[2017-07-18] MEDS: DOCUSATE SODIUM 100 MG CAPSULE PO SCH (19:49)
[2017-07-18] MEDS ORDERED: DIPHENHYDRAMINE HCL 25 MG CAPSULE PO PRN (20:07)
[2017-07-19] MEDS: KETOROLAC TROMETHAMINE INJ/PF 30 MG/1 ML SDV IV SCH (05:54)
[2017-07-19] MEDS ORDERED: LEVOTHYROXINE SODIUM 0.05 MG TABLET PO SCH (06:00)
[2017-07-19 07:20] LABS: HEMATOCRIT 34.7 % (36.0-47.0); HEMOGLOBIN 12.2 g/dL (12.0-15.5); MEAN CORPUSCULAR HGB CONC 35.2 g/dL (32.0-36.0); MEAN CORPUSCULAR VOLUME 91 fl (80-97); PLATELET COUNT 135 10^3/uL (150-450); RED BLOOD COUNT 3.81 10^6/uL (3.72-5.28); RED CELL DISTRIBUTION WIDTH 12.9 % (11.5-14.0); WHITE BLOOD COUNT 8.9 10^3/uL (4.0-10.5)
[2017-07-19 07:48] LABS: ANION GAP 8 (5-19); BLOOD UREA NITROGEN 7 mg/dL (7-20); CALCIUM 9.2 mg/dL (8.4-10.2); CARBON DIOXIDE 29 mmol/L (22-30); CHLORIDE 104 mmol/L (98-107); GLUCOSE 97 mg/dL (75-110); POTASSIUM 3.9 mmol/L (3.6-5.0); SODIUM 141.2 mmol/L (137-145)
[2017-07-19] MEDS: DOCUSATE SODIUM 100 MG CAPSULE PO SCH (09:50)
[2017-07-19] MEDS ORDERED: PRENATAL VITAMIN W DHA CAPSULE PO SCH (10:00)
[2017-07-19] MEDS ORDERED: FLUOXETINE HCL 20 MG CAPSULE PO SCH (10:00)
--- NOTE | 2017-07-19 12:23 | PDOC DISCHARGE SUMMARY ---
General - Admit/Disc Date/PCP Admission Date/Primary Care Provider: BEKA SAUL MD Discharge Date: 07/19/17 - Discharge Diagnosis (1) Cervical dysplasia Is this a current diagnosis for this admission?: Yes (2) Menorrhagia Is this a current diagnosis for this admission?: Yes - Additional Information Discharge Diet: Regular Discharge Activity: Balance Activity w/Rest, Pelvic Rest Prescriptions: Oxycodone HCl/Acetaminophen [Percocet 5-325 mg Tablet] 1 tab PO Q4HP PRN #30 tablet PRN Reason: Home Medications: Adalimumab [Humira] 40 mg SQ ASDIR PRN 02/02/17 Divalproex Sodium [Depakote ER 500 mg Tab.sr] 1,000 mg PO QHS 02/02/17 Fluoxetine HCl [Prozac] 20 mg PO DAILY 02/02/17 Levothyroxine Sodium [Synthroid 0.05 mg Tablet] 50 mcg PO QHS 02/02/17 Acetaminophen [Tylenol Extra Strength] 500 mg PO DAILY 07/07/17 Multivitamin [One-A-Day Essential] 1 each PO DAILY 07/07/17 Ibuprofen [Motrin 800 mg Tablet] 800 mg PO Q6A tablet 07/19/17 Oxycodone HCl/Acetaminophen [Percocet 5-325 mg Tablet] 1 tab PO Q4HP PRN #30 tablet 07/19/17 History of Present Illness Patient complains of: Patient has recurrent high-grade dysplasia and a history of dysmenorrhea and menorrhagia desires hysterectomy for treatment. History of Present Illness: BETH WHYTE is a 27 year old female Patient has completed childbearing and has had a tubal ligation. She desires a hysterectomy for her recurrent dysplasia menorrhagia and dysmenorrhea. Hospital Course Hospital Course: She was admitted and underwent a robotic hysterectomy. Procedure went well placed in the operative report. Not a surgery she is doing well her pain was controlled. Her Galloway was removed the next morning and she was able to void and ambulate on her own. She states she is ready to go home at this point. Percocet is working for pain control she is on a regular diet. Physical Exam - Physical Exam Vital Signs: Temp Pulse Resp BP Pulse Ox 98.3 F 80 16 101/49 L 96 07/19/17 11:16 07/19/17 11:16 07/19/17 11:16 07/19/17 11:16 07/19/17 11:16 Intake & Output 07/18/17 07/19/17 07/20/17 06:59 06:59 06:59 Intake Total 3090 Output Total 3355 Balance -265 Weight 90.72 kg General appearance: PRESENT: no acute distress Head exam: PRESENT: atraumatic - Dressing on the abdomen is dry and the incisions are intact. Result Laboratory Results: 07/19/17 07:07 07/19/17 07:07 07/19/17 07/19/17 07/19/17 06:13 07:07 07:07 WBC Cancelled 8.9 RBC Cancelled 3.81 Hgb Cancelled 12.2 Hct Cancelled 34.7 L MCV Cancelled 91 MCH Cancelled 32.0 MCHC Cancelled 35.2 RDW Cancelled 12.9 Plt Count Cancelled 135 L Sodium 141.2 Potassium 3.9 Chloride 104 Carbon Dioxide 29 Anion Gap 8 BUN 7 Creatinine 0.56 Est GFR ( Amer) > 60 Est GFR (Non-Af Amer) > 60 Glucose 97 Calcium 9.2 Impressions: Patient is doing well on postop day 1. She will go home to recuperate. Her follow-up visits are scheduled. Pelvic rest no driving until until off Percocet no heavy lifting or straining. Plan Discharge Plan: Home see plan as above. Time Spent: Less than 30 Minutes
[2017-07-19 12:35] VITALS: BP 115/62
[2017-07-19] MEDS ORDERED: IBUPROFEN 800 MG TABLET PO SCH (15:00)
== END 2017-07-19 13:53 | disposition home or self-care (01) ==
LOC: OROUT 08:52 → 2N 15:13 → OROUT 07-19 13:53
PROVIDERS: ATTEND Obstetrics & Gynecology
DX: D06.0 Carcinoma in situ of endocervix (principal); N94.6 Dysmenorrhea, unspecified; N83.8 Other noninflammatory disorders of ovary, fallopian tube and broad ligament; E07.9 Disorder of thyroid, unspecified; L40.50 Arthropathic psoriasis, unspecified; Z01.818 Encounter for other preprocedural examination; Z79.899 Other long term (current) drug therapy; Z88.5 Allergy status to narcotic agent; Z91.040 Latex allergy status
CPT/HCPCS: 86900; 86901; 36415 ×2; 86850; 85027 ×2; 81025; 80048; 80053; 81001; 88307 ×2; 94799; 58571; J2250; J0690; J1100; J3490 ×5; J3010 ×2; J1885 ×2; J2270; J1170; J2370; J0330; J2405; J2704; S0028; J0131; S2900; 840

== ENCOUNTER 2018-03-06 19:25 | Emergency (ER) | payer MEDICAID ==
[2018-03-06] MEDS ORDERED: IBUPROFEN 800 MG TABLET PO ONE (21:34)
--- NOTE | 2018-03-06 21:37 | ER Document Report ---
HPI - HPI Patient complains to provider of: sore throat Time Seen by Provider: 03/06/18 21:28 Pain Level: 3 Context: Patient is a 28-year-old female presents to the emergency department complaining of sore throat and fever started today. Patient states T-max of 101. Patient also complains of cough and congestion. Patient states she has vomited non- posttussive 3 times today and also has had 5 episodes of diarrhea. Patient is denying blood in either vomit or diarrhea. Patient is denying dysuria or abdominal pain. Patient states she has been able to eat and drink something after last vomiting episode. Past medical history: Epilepsy, hypothyroid, depression Medications: Depakote, levothyroxine, Zoloft Allergies: Codeine, latex - REPRODUCTIVE Reproductive: DENIES: : Past Medical History - General Information source: Patient - Social History Smoking Status: Unknown if Ever Smoked Family History: Reviewed & Not Pertinent - Past Medical History Cardiac Medical History: Denies: Hx Congestive Heart Failure, Hx Coronary Artery Disease, Hx Heart Attack, Hx Hypertension Pulmonary Medical History: Reports: Hx Pneumonia - hx of Denies: Hx Asthma, Hx Bronchitis, Hx COPD, Hx Tuberculosis Neurological Medical History: Reports: Hx Seizures - Epilepsy, 10/31/2016 last seizure. Denies: Hx Cerebrovascular Accident, Hx Migraine Renal/ Medical History: Denies: Hx End Stage Renal Disease, Hx Kidney Stones, Hx Peritoneal Dialysis GI Medical History: Denies: Hx Cirrhosis, Hx Gastroesophageal Reflux Disease, Hx Ulcer Musculoskeletal Medical History: Reports Hx Arthritis - Psoriatic arthritis, Denies Hx Multiple Sclerosis Psychiatric Medical History: Reports: Hx Depression Denies: Hx Bipolar Disorder, Hx Schizophrenia - Immunizations Hx Diphtheria, Pertussis, Tetanus Vaccination: Yes Vertical Provider Document - CONSTITUTIONAL Agree With Documented VS: Yes Notes: GENERAL: Alert, interacts well. No acute distress. HEAD: Normocephalic, atraumatic. EYES: Pupils equal, round, and reactive to light. Extraocular movements intact. ENT: Oral mucosa moist, tongue midline. Nares patent, TM's intact, nonerythematous, nonbulging. Pharynx minorly erythematous, bilateral tonsils +2 symmetrical, no exudate or palatal petechiae noted NECK: Full range of motion. Supple. Trachea midline. Cervical lymphadenopathy appreciated bilaterally LUNGS: Clear to auscultation bilaterally, no wheezes, rales, or rhonchi. No respiratory distress. HEART: Tachycardic rate and rhythm. No murmur ABDOMEN: Soft, non-tender. Non-distended. Bowel sounds present in all 4 quadrants. EXTREMITIES: Moves all 4 extremities spontaneously. No edema, normal radial and dorsalis pedis pulses bilaterally. No cyanosis. BACK: no cervical, thoracic, lumbar midline tenderness. No saddle anesthesia, normal distal neurovascular exam. NEUROLOGICAL: Alert and oriented x3. Normal speech. cranial nerves II through XII grossly intact PSYCH: Normal affect, normal mood. SKIN: Warm, dry, normal turgor. No rashes or lesions noted. - INFECTION CONTROL TRAVEL OUTSIDE OF THE [place] IN LAST 30 DAYS: No Course - Re-evaluation Re-evalutation: 03/06/18 21:37 Patient was treated with Motrin in the emergency room for her relative tachycardia due to her potentially spiking a fever. Patient wishes to decline Zofran at this time. States she has been able to eat and drink something after her last vomiting episode and currently does not feel nauseated. Discussed with her home use of Zofran for nausea. Awaiting strep results. 03/06/18 22:31 Patient strep is negative at this time. Discussed viral pharyngitis with patient at bedside. Discussed home use of Zofran for inevitable nausea. Patient is stable for discharge and voices agreement. - Vital Signs Vital signs: Temp Pulse Resp BP Pulse Ox 99.4 F 110 H 20 138/72 H 98 03/06/18 19:38 03/06/18 19:38 03/06/18 19:38 03/06/18 19:38 03/06/18 19:38 Discharge - Discharge Clinical Impression: Vomiting Qualifiers: Vomiting type: unspecified Vomiting Intractability: non-intractable Nausea presence: with nausea Qualified Code(s): R11.2 - Nausea with vomiting, unspecified Pharyngitis Qualifiers: Pharyngitis/tonsillitis etiology: other specified organisms Qualified Code(s): J02.8 - Acute pharyngitis due to other specified organisms Condition: Stable Disposition: HOME, SELF-CARE Instructions: Sore Throat ([facility]), Vomiting ([facility]) Additional Instructions: As we discussed your rapid strep test came back negative for bacteria. This means it is a viral in nature and will not respond to antibiotics. Please follow-up with your primary care provider in the next 24-48 hours. Please return to the emergency room for any other concerning symptoms. Prescriptions: Ondansetron [Zofran Odt 4 mg Tablet] 1 - 2 tab PO Q4H PRN #15 tab.rapdis PRN Reason: For Nausea/Vomiting Referrals: BEKA SAUL MD [NO LOCAL MD] - Follow up as needed
[2018-03-06 22:34] VITALS: BP 120/71
== END 2018-03-06 22:35 | disposition home or self-care (01) ==
LOC: ER 19:25
DX: J02.8 Acute pharyngitis due to other specified organisms (principal); R11.2 Nausea with vomiting, unspecified; R50.9 Fever, unspecified; R05 Cough; E03.9 Hypothyroidism, unspecified
CPT/HCPCS: 99283; 87070; 87880; 87077; J3490

== ENCOUNTER 2019-03-14 05:20 | Day surgery (SDC) | payer MEDICAID ==
[2019-03-12 09:56] LABS: HEMATOCRIT 37.5 % (36.0-47.0); HEMOGLOBIN 13.4 g/dL (12.0-15.5); MEAN CORPUSCULAR HEMOGLOBIN 31.9 pg (27.0-33.4); MEAN CORPUSCULAR HGB CONC 35.9 g/dL (32.0-36.0); MEAN CORPUSCULAR VOLUME 89 fl (80-97); PLATELET COUNT 175 10^3/uL (150-450); RED BLOOD COUNT 4.21 10^6/uL (3.72-5.28); RED CELL DISTRIBUTION WIDTH 12.5 % (11.5-14.0); WHITE BLOOD COUNT 5.7 10^3/uL (4.0-10.5)
[2019-03-12 09:57] LABS: APPEARANCE,URINE SLIGHTLY-CLOUDY; BILIRUBIN,URINE NEGATIVE (NEGATIVE); COLOR,URINE YELLOW; GLUCOSE, URINE NEGATIVE (NEGATIVE); KETONES,URINE TRACE mg/dL (NEGATIVE); LEUKOCYTE ESTERASE,URINE NEGATIVE (NEGATIVE); NITRITE,URINE NEGATIVE (NEGATIVE); PROTEIN,URINE 30 mg/dL (NEGATIVE); URINE SPECIFIC GRAVITY 1.025; UROBILINOGEN,URINE NEGATIVE mg/dL (<2.0)
[~2019-03-14 05:20] MED LIST changes: -CEFAZOLIN SODIUM 2 GM in DEXTROSE 5%-WATER 100 ML IV PRN; -DEXAMETHASONE SOD PHOSPHATE INJ 4 MG/1 ML VIAL ONE; -GLYCOPYRROLATE INJ 0.4 MG/2 ML VIAL ONE; -LIDOCAINE 2% INJ-PF (20 MG/ML) 2 ML AMPUL ONE; -NEOSTIGMINE METHYLSULFATE 10 MG/10 ML VIAL ONE; -ONDANSETRON HCL INJ/PF 4 MG/2 ML SDV ONE; -PHENYLEPHRINE HCL INJ/PF 10 MG/1 ML SDV ONE; -SUCCINYLCHOLINE CHLORIDE INJ 200 MG/10 ML VIAL ONE; -VECURONIUM BROMIDE INJ 10 MG VIAL IV ONE
[2019-03-14] MEDS ORDERED: HYDROMORPHONE HCL INJ/PF 2 MG/ML AMPULE ONE (06:54)
[2019-03-14] MEDS ORDERED: MIDAZOLAM 2 MG/2 ML INJ ONE (06:54)
[2019-03-14] MEDS ORDERED: PROPOFOL INJ 200 MG/20 ML VIAL IV ONE (06:55)
[2019-03-14] MEDS ORDERED: BUPIVACAINE HCL 0.25 % INJ/PF (2.5 MG/1 ML) 30 ML VIAL ONE (07:13)
[2019-03-14] MEDS ORDERED: OXYCODONE-ACETAMINOPHEN 5-325 MG TABLET PO PRN ×3 (07:43→08:54)
[2019-03-14] MEDS ORDERED: PROMETHAZINE HCL INJ 25 MG/1 ML VIAL IV PRN ×2 (07:43)
[2019-03-14] MEDS ORDERED: FENTANYL CITRATE INJ/PF 100 MCG/2 ML AMPUL IV PRN ×3 (07:43)
[2019-03-14] MEDS ORDERED: ONDANSETRON HCL INJ/PF 4 MG/2 ML SDV IV PRN (07:43)
[2019-03-14] MEDS ORDERED: DIPHENHYDRAMINE HCL 50 MG/ML VIAL IV PRN (07:43)
[2019-03-14] MEDS ORDERED: MEPERIDINE HCL/PF INJ 25 MG/1 ML DISP.SYRIN IV PRN (07:43)
[2019-03-14] MEDS ORDERED: BUPIVACAINE HCL 0.25 % INJ/PF (2.5 MG/1 ML) 30 ML VIAL INJ ONE (08:12)
--- NOTE | 2019-03-14 08:23 | Operative Report ---
Operative Report DATE OF SURGERY: 03/14/19 PREOPERATIVE DIAGNOSIS: Right lower quadrant pain POSTOPERATIVE DIAGNOSIS: Same plus and trapped right ovary and adhesions of the pelvis OPERATION: Laparoscopic oophorectomy and lysis of adhesions SURGEON: RONIT COON ANESTHESIA: GA TISSUE REMOVED OR ALTERED: Right ovary COMPLICATIONS: None ESTIMATED BLOOD LOSS: Negligible INTRAOPERATIVE FINDINGS: Intra-Op right ovary and adhesions in the pelvis and around left ovary PROCEDURE: Patient placed in a dorsal lithotomy vision prepped draped sterile fashion. Bladder was drained with a catheter. Sponge sticks placed in the vagina. Attention turned to the abdomen where a subumbilical incision was made trocar was introduced and insufflation of the abdomen. The right ovary was noted to be adhered to the right adnexal wall and covering this was filmy adhesions from the omentum and bowel. Second puncture was made above the symphysis and a 1012 trocar was introduced. Third lateral on the left and a 5 trocar was introduced. Using the harmonic scalpel the right infundibulopelvic was identified and sharply divided and the ovary was freed from the surrounding adhesions. Ovary was then removed using a Pleatman sac. The adhesions around the left ovary there were then taken down using the harmonic scalpel. Pedicle was inspected on the right hemostasis was noted. Semester removed and then deflated and trocar sleeves removed. The umbilical and suprapubic incisions were closed using 0 V icryl for the fascia and 4 oh subcu the puncture wound on the left was closed using subcu 4 o. Patient was taken to recovery room in good condition
[2019-03-14] MEDS ORDERED: ACETAMINOPHEN 1,000 MG/100 ML RTUPB IV ONE (08:35)
[2019-03-14] MEDS ORDERED: ONDANSETRON HCL 8 MG TABLET PO PRN (08:54)
[2019-03-14] MEDS: MIDAZOLAM 2 MG/2 ML INJ ONE ×2 (09:08→09:09)
[2019-03-14] MEDS ORDERED: OXYCODONE-ACETAMINOPHEN 5-325 MG TABLET ONE (09:49)
[2019-03-14 11:01] VITALS: BP 109/66
[2019-03-14] MEDS ORDERED: IBUPROFEN 800 MG TABLET PO SCH (14:00)
[2019-03-14] MEDS ORDERED: DEXAMETHASONE SOD PHOSPHATE INJ 4 MG/1 ML VIAL ONE (14:16)
[2019-03-14] MEDS ORDERED: LIDOCAINE 2% INJ-PF (20 MG/ML) 2 ML AMPUL ONE (14:16)
[2019-03-14] MEDS ORDERED: KETOROLAC TROMETHAMINE 60 MG/2 ML SDV ONE (14:16)
[2019-03-14] MEDS ORDERED: METOCLOPRAMIDE HCL INJ/PF 10 MG/2 ML SDV ONE (14:16)
[2019-03-14] MEDS ORDERED: NEOSTIGMINE METHYLSULFATE 10 MG/10 ML VIAL ONE (14:16)
[2019-03-14] MEDS ORDERED: GLYCOPYRROLATE 1 MG/5 ML VIAL ONE (14:16)
[2019-03-14] MEDS ORDERED: ONDANSETRON HCL INJ/PF 4 MG/2 ML SDV ONE (14:16)
[2019-03-14] MEDS ORDERED: ROCURONIUM BROMIDE INJ 50 MG/5 ML VIAL IV ONE (14:16)
== END 2019-03-14 10:40 | disposition home or self-care (01) ==
LOC: OROUT 05:20
PROVIDERS: ATTEND Obstetrics & Gynecology Gynecology
DX: N83.11 Corpus luteum cyst of right ovary (principal); K66.0 Peritoneal adhesions (postprocedural) (postinfection); R10.31 Right lower quadrant pain; Z79.899 Other long term (current) drug therapy; Z91.040 Latex allergy status; G40.909 Epilepsy, unspecified, not intractable, without status epilepticus
CPT/HCPCS: 36415; 85027; 81005; 88305 ×2; 00840; 58661; J2250; J3490 ×4; J1100; J1885; J2765; J2710; J1170; J2405; J2704; J0131; 840